=== PATIENT | female | born 1950 | race Caucasian/White ===

== ENCOUNTER → 2016-10-07 | Outpatient (CLI) | payer MEDICARE, BC ==
--- NOTE | 2016-10-07 17:21 | Diagnostic Imaging Report ---
EXAMINATION: DEXA scan. INDICATION: Osteopenia TECHNIQUE: Bone mineral density estimated based on dual energy radiography over the lumbar spine and femoral necks, was performed. FINDINGS: The lumbar spine T-score is 1.6. Left femoral neck T score is 1.4 and on the right side is 0.9. IMPRESSION: Bone mineral density within normal limits.. Dictated by: Dictated on workstation # [id number]
== END ==
LOC: RAD 09:43
PROVIDERS: ATTEND Internal Medicine
DX: Z13.820 Encounter for screening for osteoporosis (principal); Z78.0 Asymptomatic menopausal state
CPT/HCPCS: 77080

== ENCOUNTER → 2017-05-19 | Outpatient (CLI) | payer MEDICARE ==
--- NOTE | 2017-05-20 09:52 | Diagnostic Imaging Report ---
Bilateral screening mammogram 2D views with tomosynthesis The current study was also evaluated with a Computer Aided Detection (CAD) system. INDICATION: Screening. No current complaints stated on the questionnaire. COMPARISON: 05/03/16. FINDINGS: The breasts are composed of heterogeneously dense parenchyma which may decrease mammographic sensitivity. Biopsy clip in the left breast is seen. There are benign-appearing calcifications. Allowing for technique and positional differences, no suspicious change is seen. IMPRESSION: Dense breasts with no definite change. ACR BI-RADS Category 2: Benign findings. Result letter will be mailed to the patient. Note: At least 10% of breast cancer is not imaged by mammography. Dictated by: Dictated on workstation # [id number]
== END ==
LOC: RAD 10:53
PROVIDERS: ATTEND Internal Medicine
DX: Z12.31 Encounter for screening mammogram for malignant neoplasm of breast (principal)
CPT/HCPCS: 77067

== ENCOUNTER → 2018-05-30 | Outpatient (CLI) | payer MEDICARE ==
--- NOTE | 2018-05-30 13:47 | Diagnostic Imaging Report ---
INDICATION: Routine screening. COMPARISON: 05/19/2017 and 05/03/2016. TECHNIQUE: 2D and 3D bilateral screening mammography was performed with CAD. FINDINGS: Both breasts are heterogeneously dense, limiting the sensitivity of mammography. A biopsy clip in the left breast is again noted. The parenchymal pattern appears stable. No mass or malignant appearing microcalcifications are seen. The axillae are unremarkable. IMPRESSION: No mammographic features suspicious for malignancy are identified. ACR BI-RADS Category 2: Benign findings. Result letter will be mailed to the patient. Note: At least 10% of breast cancer is not imaged by mammography. Dictated by: Dictated on workstation # [id number]
== END ==
LOC: RAD 09:52
PROVIDERS: ATTEND Internal Medicine
DX: Z12.31 Encounter for screening mammogram for malignant neoplasm of breast (principal)
CPT/HCPCS: 77067

== ENCOUNTER → 2018-12-19 | Outpatient (CLI) | payer MEDICARE ==
--- NOTE | 2018-12-19 12:27 | Diagnostic Imaging Report ---
PROCEDURE: US Thyroid. TECHNIQUE: Multiple real-time grayscale images were obtained of the thyroid in various projections. INDICATION: Thyromegaly. COMPARISON: Correlation is made with prior thyroid ultrasound from 07/03/2013. FINDINGS: The right lobe of the thyroid measures 4.9 x 1.9 x 1.6 cm and the left lobe measures 4.5 x 1.4 x 1.3 cm. Isthmus is 4 mm in thickness. Subcentimeter nodules are identified bilaterally. Nodules in the upper pole of the left lobe measures slightly larger at approximately 8 to 9 mm compared with 6 mm on examination from six years earlier. No dominant thyroid mass is detected. IMPRESSION: Subcentimeter thyroid nodules bilaterally, as described. No dominant thyroid mass is detected. Dictated by: Dictated on workstation # [id number]
== END ==
LOC: RAD 10:34
PROVIDERS: ATTEND Nurse Practitioner Family
DX: E04.2 Nontoxic multinodular goiter (principal); G47.39 Other sleep apnea; E66.9 Obesity, unspecified; R01.1 Cardiac murmur, unspecified; Z68.39 Body mass index [BMI] 39.0-39.9, adult
CPT/HCPCS: 76536

== ENCOUNTER → 2018-12-20 | Outpatient (CLI) | payer MEDICARE | LOC: CARD 14:06 | PROVIDERS: ATTEND Nurse Practitioner Family | DX: R01.1 Cardiac murmur, unspecified (principal); R73.02 Impaired glucose tolerance (oral); G47.39 Other sleep apnea; I07.1 Rheumatic tricuspid insufficiency; E66.9 Obesity, unspecified; Z68.39 Body mass index [BMI] 39.0-39.9, adult | CPT/HCPCS: 93306 ==

== ENCOUNTER → 2019-02-19 | Outpatient (CLI) | payer MEDICARE ==
[~2019-02-19] MED LIST: REGADENOSON 0.4 MG/5 ML SYR (LEXISCAN) IV ONE
[2019-02-19] MEDS: CATHETER FLUSH 10 ML SYR IV PRN ×2 (07:10→08:13)
[2019-02-19 08:11] VITALS: BP 127/70
--- NOTE | 2019-02-19 10:41 | Cardiology Stress Test Report ---
Stress Test Report Type of NM Stress Test: Test Type: LEXISCAN 0.4MG/5ML Date of Procedure/Referring: Date of Procedure: Feb 19, 2019 PCP Karen Benito,Riccardo Admitting Physician Wicho Benito DO Indications: Systolic heart murmur Baseline Heart Rate: 90 Baseline Blood Pressure: Blood Pressure Systolic: 127 Blood Pressure Diastolic: 70 Baseline EKG: Baseline EKG: sinus rhythm with PVCs Summary & Conclusion: Summary: The patient was brought to the stress lab after informed consent was taken. Stress test was performed according to the Lexiscan protocol. 0.4 mg of IV Lexiscan was given. Baseline EKG showed sinus rhythm with PVCs at 90 BPM. Initial blood pressure was 144/72 mmHg. Patient did not have any chest pain, arrhythmias or ST segment changes during the stress test. 10.79 mCi of Myoview were given for rest imaging and 31.9 mCi of Myoview given for stress imaging. Transient ischemic dilatation score 0.94, EF 75 percent. Normal wall motion. Small mild fixed apical defect likely artifact. Conclusion: Pharmacological stress test was negative for ischemia. Normal LV function with no wall motion abnormalities. Normal myocardial perfusion imaging during rest and stress. Neda VARGAS MD Feb 19, 2019 10:41
== END ==
LOC: CARD 06:49
PROVIDERS: ATTEND Nurse Practitioner Family
DX: R01.1 Cardiac murmur, unspecified (principal)
CPT/HCPCS: 78452; 93017

== ENCOUNTER → 2019-06-04 | Outpatient (CLI) | payer MEDICARE ==
--- NOTE | 2019-06-04 12:20 | Diagnostic Imaging Report ---
INDICATION: Routine screening. COMPARISON: 05/30/2018 and 05/19/2017. TECHNIQUE: 2D and 3D bilateral screening mammography was performed with CAD. FINDINGS: Both breasts are heterogeneously dense, limiting the sensitivity of mammography. A biopsy clip in the outer left breast is again noted. No mass or malignant appearing microcalcifications are seen. The axillae are unremarkable. IMPRESSION: No mammographic features suspicious for malignancy are identified. ACR BI-RADS Category 2: Benign findings. Result letter will be mailed to the patient. Note: At least 10% of breast cancer is not imaged by mammography. Dictated by: Dictated on workstation # [id number]
== END ==
LOC: RAD 09:22
PROVIDERS: ATTEND Nurse Practitioner Family
DX: Z12.31 Encounter for screening mammogram for malignant neoplasm of breast (principal)
CPT/HCPCS: 77067

== ENCOUNTER → 2020-09-29 | Outpatient (CLI) | payer MEDICARE ==
--- NOTE | 2020-09-30 10:41 | Diagnostic Imaging Report ---
EXAMINATION: Digital mammogram bilateral screening with CAD. INDICATION: Screening. COMPARISON: This study was compared to the prior exams of 06/04/2019, 05/30/2018, and 05/19/2017. PERSONAL HISTORY: The patient does note pain in the upper outer quadrant of the left breast for the last 2-3 weeks. Also, she reviewed a Covid vaccine in the left arm on 09/11/2020. FINDINGS: The fibroglandular tissue in both breasts is heterogeneously dense. This does limit the sensitivity of this exam. The overall appearance of the breasts has not changed significantly. Specifically, there is no primary or secondary sign of malignancy. A stereotactic clip in the left breast seen previously is again evident and no different. However, there do appear to be a few prominent lymph nodes in the left axilla. These have developed in the interval since the previous studies. These nodes are nonspecific but could be related to the patient's recent Covid vaccine. It would be less likely that they are neoplastic in nature. I would recommend that ultrasound of the left axilla be performed for a more sensitive evaluation of the nodes in this area. There is no significant adenopathy on the right. IMPRESSION: There is no evidence for malignancy involving the breasts; however, ultrasound would be recommended for further evaluation of the left axillary adenopathy. ACR BI-RADS Category 0: Incomplete. (Needs additional imaging evaluation). Result letter will be mailed to the patient. Note: At least 10% of breast cancer is not imaged by mammography. Dictated by: Dictated on workstation # [id number]
== END ==
LOC: RAD 10:00
PROVIDERS: ATTEND Nurse Practitioner Family
DX: Z12.31 Encounter for screening mammogram for malignant neoplasm of breast (principal); G47.39 Other sleep apnea
CPT/HCPCS: 77063; 77067

== ENCOUNTER → 2020-10-14 | Outpatient (CLI) | payer MEDICARE ==
--- NOTE | 2020-10-14 16:21 | Diagnostic Imaging Report ---
INDICATION: Left axillary lymphadenopathy noted on recent mammogram. COMPARISON: Correlation is made with the screening mammogram from 09/29/2020. FINDINGS: Sonographic interrogation of the left axilla was performed. There are multiple enlarged lymph nodes in the left axilla with the largest measuring 2.9 x 1.3 x 1.1 cm. All lymph nodes do show some echogenic fatty hilum but the overlying cortex is slightly thickened. This is indeterminate. No other abnormalities are seen. IMPRESSION: Left axillary lymphadenopathy, indeterminate. Followup left axillary ultrasound in 3 months is recommended to confirm clearing. ACR BI-RADS Category 3: Probably benign findings. Dictated by: Dictated on workstation # [id number]
== END ==
LOC: RAD 13:00
PROVIDERS: ATTEND Nurse Practitioner Family
DX: R59.0 Localized enlarged lymph nodes (principal)
CPT/HCPCS: 76642

== ENCOUNTER → 2021-10-26 | Outpatient (CLI) | payer MEDICARE ==
--- NOTE | 2021-10-26 12:55 | Diagnostic Imaging Report ---
INDICATION: Routine screening. COMPARISON: 09/29/2020 and 06/04/2019. TECHNIQUE: 2D and 3D bilateral screening mammography was performed with CAD. FINDINGS: Both breasts are heterogeneously dense, limiting the sensitivity of mammography. A biopsy marker clip in the outer left breast is again noted. No spiculated mass or malignant-appearing microcalcifications are seen. The previously noted enlarged lymph nodes in the left axilla have resolved. The axillae appear unremarkable on today's exam. IMPRESSION: No mammographic features suspicious for malignancy are identified. ACR BI-RADS Category 2: Benign findings. Result letter will be mailed to the patient. Note: At least 10% of breast cancer is not imaged by mammography. Dictated by: Dictated on workstation # [id number]
== END ==
LOC: RAD 10:00
PROVIDERS: ATTEND Nurse Practitioner Family
DX: Z12.31 Encounter for screening mammogram for malignant neoplasm of breast (principal)
CPT/HCPCS: 77063; 77067

== ENCOUNTER → 2022-05-04 | Outpatient (CLI) | payer MEDICARE ==
--- NOTE | 2022-05-04 16:38 | Diagnostic Imaging Report ---
INDICATION: 71-year-old asymptomatic postmenopausal female COMPARISON: 10/07/2016 FINDINGS: AP Spine L1-L4: [BMD (g/cm2): 1.205] [T-Score: 0.0] [Z-Score: 0.9] [BMD Previous: 1.391] [BMD % Change: -13.4*] LT Hip Neck: [BMD (g/cm2): 0.941] [T-Score: -0.7] [Z-Score: 0.5] LT Hip Total: [BMD (g/cm2):1.171] [T-Score:1.3] [Z-Score: 2.2] [BMD Previous: 1.181] [BMD % Change: -0.8] RT Hip Neck: [BMD (g/cm2):0.908] [T-Score:-0.9] [Z-Score:0.2] RT Hip Total: [BMD (g/cm2):1.108] [T-score:0.8] [Z-Score:1.7] [BMD Previous:1.125] [BMD % Change:-1.5] *Indicates significant change from prior examination based on 95% confidence level. World Health Organization criteria for BMD interpretation classify patients as Normal (T-score at or above -1.0), Osteopenic (T-score between -1.0 and -2.5) or Osteoporotic (T-score at or below -2.5). LIMITATIONS AND MODIFICATION: None. FRACTURE RISK (FRAX SCORE): The ten year probability of (%): Major Osteoporotic Fracture: [na] Hip Fracture: [na] IMPRESSION: 1. Normal bone mineral density. 2. Bone mineral density has decreased by a statistically significant amount, as detailed above. 3. See below National Osteoporosis Foundation guidelines on when to potentially initiate pharmacologic therapy. Based on the National Osteoporosis Foundation Guidelines, pharmacologic treatment should be initiated in any of the following, unless clinical conditions suggest otherwise: * Any patient with prior fragility fracture of the hip or vertebrae. A spine fracture indicates 5X risk for subsequent spine fracture and 2X risk for subsequent hip fracture. * Osteoporosis (T-score <-2.5). * Postmenopausal women and men age 50 and older with low bone mass/osteopenia (T-score between -1.0 and -2.5) by DXA and 10-year major osteoporotic fracture greater than 20% or a 10-year probability of hip fracture greater than 3%. These fracture risks are supplied above in the FRAX score, if applicable. * Clinician judgement and/or patient preferences may indicate treatment for people with 10-year fracture probabilities above or below these levels. Dictated by: Dictated on workstation # [id number]
== END ==
LOC: RAD 12:15
PROVIDERS: ATTEND Nurse Practitioner Family
DX: Z78.0 Asymptomatic menopausal state (principal)
CPT/HCPCS: 77080

== ENCOUNTER → 2022-12-06 | Outpatient (CLI) | payer MEDICARE ==
--- NOTE | 2022-12-06 11:44 | Diagnostic Imaging Report ---
INDICATION: Routine screening. Comparison is made with prior mammogram from 10/26/2021 and 09/29/2020. 2-D and 3-D bilateral screening mammography was performed with CAD. CAD is utilized. The current study was also evaluated with a Computer Aided Detection (CAD) system. Both breasts are heterogeneously dense, limiting the sensitivity of mammography. Biopsy clip in the left breast is again noted. No mass or malignant-appearing microcalcifications are identified. The axillae are unremarkable. IMPRESSION: BI-RADS Category 2 No mammographic features suspicious for malignancy are identified. ACR BI-RADS Category 2: Benign findings. Result letter will be mailed to the patient. Note: At least 10% of breast cancer is not imaged by mammography. Dictated by: Dictated on workstation # [id number]
== END ==
LOC: RAD 09:49
PROVIDERS: ATTEND Nurse Practitioner Family
DX: Z12.31 Encounter for screening mammogram for malignant neoplasm of breast (principal)
CPT/HCPCS: 77063; 77067